=== PATIENT | female | born 1945 | race African-American/Black ===

== ENCOUNTER → 2016-12-22 | Outpatient (CLI) | payer MEDICARE, OTHER ==
--- NOTE | ~2016-12-22 | MY11 ---
[facility] A Service of [facility] RADIOLOGY TEXT RESULTS PATIENT: KAYKAY SIERRA LOCATION: [facility] : 47 UNIT #: [id number] AGE: [address]: Jaime Chappell MD SEX: F ORDER DR: [id number] [place], [place] [address] [id number] O MR#: [id number] Acc #: [id number] NAME: KAYKAY SIERRA : 1945 SEX: F STUDY DATE/TIME: 12/22/2016 12:10 UNIT: [facility] ROOM: STUDY DESCRIPTION: MY Mammogram Screening Dig Oli Attending Physician: Jaime Chappell M.D. Referring Physician: Jaime Chappell M.D. Ordering Physician: Jaime Chappell M.D. Primary Care Physician: Jaime Chappell M.D. MEDICAL IMAGING REPORT This report is preliminary unless electronic signature is present EXAM Bilateral digital screening mammogram with CAD 12/22/2016 HISTORY 71-year-old asymptomatic female with no personal or family history of breast cancer. FINDINGS The background breast parenchyma consists of scattered fibroglandular densities. No suspicious mass, microcalcification, or architectural distortion. The exam is compared to prior mammogram dated 09/23/2015. IMPRESSION Negative mammogram. Patient's over the age of 40 are entered into a reminder system with target due date for the next mammogram. BIRADS: 1 Negative RECOMMENDATIONS Annual screening mammogram. Dictated by... Michael Byers M.D. THIS IS AN ELECTRONICALLY VERIFIED REPORT Michael Byers M.D. at 12/22/2016 5:15 PM ARTHURC/franco TD: 12/22/2016 16:07 JOB #: [id number] [facility] A Service [facility] RADIOLOGY TEXT RESULTS PATIENT: KAYKAY SIERRA LOCATION: [facility] : 47 UNIT #: [id number] AGE: [address]: Jaime Chappell MD SEX: F ORDER DR: MEDICAL IMAGING REPORT Page 1 of 1 COPY
--- NOTE | ~2016-12-22 | BD1 ---
[facility] A Service of [facility] RADIOLOGY TEXT RESULTS PATIENT: KAYKAY SIERRA LOCATION: [facility] : 47 UNIT #: [id number] AGE: [address]: Jaime Chappell MD SEX: F ORDER DR: [id number] [address] [id number] O MR#: [id number] Acc #: [id number] NAME: KAYKAY SIERRA : 1945 SEX: F STUDY DATE/TIME: 12/22/2016 11:58 UNIT: [facility] ROOM: STUDY DESCRIPTION: BD Dexa Bone Dens 1+ Site Attending Physician: Jaime Chappell M.D. Referring Physician: Jaime Chappell M.D. Ordering Physician: Jaime Chappell M.D. Primary Care Physician: Jaime Chappell M.D. MEDICAL IMAGING REPORT This report is preliminary unless electronic signature is present EXAM DXA scan. DATE 12/22/2016 HISTORY 71-year-old postmenopausal female for osteoporosis screening. Previous smoking history. COMPARISON None. FINDINGS The lumbar spine bone mineral density is not calculated secondary to previous lumbar spine surgery. The distal third left forearm bone mineral density is 0.746 g/cm2 with T-score 1.1 and Z-score 3.2, within normal limits. The left femoral neck bone mineral density is 0.935 g/cm2 with T-score 0.8 and Z-score 1.3, within normal limits. IMPRESSION Normal bone mineral density in the left forearm and within the left femoral neck. Dictated by... Terri Mai M.D. [facility] A Service of [facility] RADIOLOGY TEXT RESULTS PATIENT: KAYKAY SIERRA LOCATION: [facility] : 47 UNIT #: [id number] AGE: [address]: Jaime Chappell MD SEX: F ORDER DR: THIS IS AN ELECTRONICALLY VERIFIED REPORT Terri Mai M.D. at 12/23/2016 8:35 AM Vangie TD: 12/23/2016 02:45 JOB #: [id number] MEDICAL IMAGING REPORT Page 1 of 1 COPY
== END | disposition home or self-care (01) ==
LOC: CWCC 11:22
DX: Z12.31 Encounter for screening mammogram for malignant neoplasm of breast (principal); Z78.0 Asymptomatic menopausal state
CPT/HCPCS: 77080; G0202